=== PATIENT | female | born 1995 | race Caucasian/White ===

== ENCOUNTER 2017-07-03 08:50 | Emergency (ER) | payer BC, OTHER ==
--- NOTE | 2017-07-03 10:38 | RAD ---
INDICATION: Right upper stomach. COMPARISON: None. TECHNIQUE: 5 views of the cervical spine were obtained. FINDINGS: C1-C7 are visualized. There is nonspecific straightening of the normal cervical lordosis on the lateral view. Otherwise the vertebral bodies and facet joints are appropriately aligned. No prevertebral soft tissue swelling or fracture is seen. Disc spaces appear maintained. IMPRESSION: Nonspecific straightening of the normal cervical lordosis in this otherwise normal C-spine radiographic series. If the patient's symptoms persist, follow-up imaging is recommended.
--- NOTE | 2017-07-03 10:44 | UC ---
Shoulder Pain HPI - HPI Summary HPI Summary: 22 yo female awoke this morning at 5 AM with severe right arm pain no paresthesias arm felt very stiff slightly weak about thirty minutes ago the pain eased up and now comes in waves denies neck pain but states she has had chronic intermittent neck pain no THOMAS no trauma - History of Current Complaint Chief Complaint: UCUpperExtremity Stated Complaint: ARM PAIN Time Seen by Provider: 07/03/17 09:50 Hx Obtained From: Patient Hx Last Menstrual Period: 06/17/17 Onset/Duration: Sudden Onset Timing: Constant Severity Initially: Severe Severity Currently: Mild Location Of Pain: Is Diffuse Pain Intensity: 4 Pain Scale Used: 0-10 Numeric Character: Aching, Stiffness Aggravating Factor(s): Nothing Alleviating Factor(s): Nothing Associated Signs And Symptoms: Negative: Swelling, Redness, Bruising, Fever, Weakness, Numbness/Tingling Related History: Dominant Hand Right - Allergies/Home Medications Allergies/Adverse Reactions: Allergies Allergy/AdvReac Type Severity Reaction Status Date / Time Sulfamethoxazole Allergy Intermediate rash, Verified 07/03/17 09:10 w/Trimethoprim conjunctivitis [From Bactrim] Latex Allergy Mild itchy Verified 07/03/17 09:10 PMH/Surg Hx/FS Hx/Imm Hx Previously Healthy: Yes - Surgical History Surgical History: Yes Surgery Procedure, Year, and Place: Appendectomy - Family History Known Family History: Positive: Hypertension - Social History Alcohol Use: Weekly Substance Use Type: None Smoking Status (MU): Never Smoked Tobacco Have You Smoked in the Last Year: No - Immunization History Most Recent Influenza Vaccination: 02/19 Vaccination Up to Date: Yes Review of Systems Constitutional: Negative Skin: Negative Eyes: Negative ENT: Negative Respiratory: Negative Cardiovascular: Negative Gastrointestinal: Negative Genitourinary: Negative Motor: Negative Neurovascular: Negative Musculoskeletal: Myalgia Neurological: Negative Psychological: Negative Is Patient Immunocompromised?: No All Other Systems Reviewed And Are Negative: Yes Physical Exam Triage Information Reviewed: Yes Appearance: Well-Appearing, No Pain Distress, Well-Nourished Vital Signs: Initial Vital Signs Temp 98.2 F 07/03/17 09:02 Pulse 80 07/03/17 09:02 Resp 14 07/03/17 09:02 BP 112/71 07/03/17 09:02 Pulse Ox 99 07/03/17 09:02 Eyes: Positive: Conjunctiva Clear ENT: Positive: Hearing grossly normal, Pharynx normal, TMs normal, Uvula midline. Negative: Nasal congestion, Nasal drainage, Trismus, Muffled voice, Hoarse voice Neck: Positive: Supple, No Lymphadenopathy, Tenderness @ - right trapzius swollen/tender Respiratory: Positive: Lungs clear, Normal breath sounds, No respiratory distress, No accessory muscle use Cardiovascular: Positive: RRR, No Murmur Musculoskeletal: Positive: ROM Intact, No Edema, Other: - n/v/intact Neurological: Positive: Alert Psychological Exam: Normal Skin Exam: Normal Diagnostics - Radiology No standard instances Xray Interpretation: Positive (See Comments) - straightening of CS Radiology Interpretation Completed By: Radiologist Shoulder Course/Dx - Differential Dx/Diagnosis Provider Diagnoses: right arm pain of uncertain cause. ?cervical radiculopathy. right trapezius strain/spasm Discharge - Discharge Plan Condition: Stable Disposition: HOME Prescriptions: Cyclobenzaprine TAB* [Flexeril TAB*] 5 mg PO TID PRN #15 tab PRN Reason: Spasms Ibuprofen TAB* [Motrin TAB*] 600 mg PO Q6H PRN #40 tab PRN Reason: Pain Patient Education Materials: Cervical Radiculopathy (ED) Referrals: Delicia Mcdaniel MD [Medical Doctor] - If Needed (recheck next week if not better) Additional Instructions: recheck for new or worsening symptoms (ED may be most appropriated in case you need further tests), increased pain/swelling of right arm/numbness soft cervical collar when up this may be a radiculopathy due to right trapzius muscle spasm but I am not sure.
[2017-07-03 11:02] VITALS: BP 119/82
== END 2017-07-03 11:09 | disposition home or self-care (01) ==
LOC: UCEAST 08:50
DX: M79.601 Pain in right arm (principal); S46.811A Strain of other muscles, fascia and tendons at shoulder and upper arm level, right arm, initial encounter; M53.82 Other specified dorsopathies, cervical region; Z88.2 Allergy status to sulfonamides; Z91.040 Latex allergy status; X58.XXXA Exposure to other specified factors, initial encounter; Y92.9 Unspecified place or not applicable
CPT/HCPCS: 72050; 99213; G0463

== ENCOUNTER 2017-11-16 10:07 | Emergency (ER) | payer BC ==
[2017-11-16 10:23] VITALS: BP 131/82
--- NOTE | 2017-11-16 16:37 | UC ---
Daniel Rizo Angela, scribed for Jose Hussein MD on 11/16/17 at 1028 . Respiratory Complaint HPI - HPI Summary HPI Summary: This pt is a 22 y/o female presenting to [facility] c/o SOB and wheezing for the past few days. Pt reports she has a hx of asthma. She states she is from [place] and came to visit her mother who has a cat in her house. Pt notes she is allergic to cats and at home she has SOB and wheezing. She reports that when she is outside the house she feels better. This morning pt was wheezing and she used her albuterol. Upon arriving to Urgent Care pt denies any symptoms currently. - History of Current Complaint Chief Complaint: UCRespiratory Stated Complaint: ASTHMA COMPLAINT Time Seen by Provider: 11/16/17 10:26 Hx Obtained From: Patient Hx Last Menstrual Period: implant Onset/Duration: Lasting Days, Resolved Severity Currently: None Pain Intensity: 0 Pain Scale Used: 0-10 Numeric Aggravating Factors: Other - cat in her house Alleviating Factors: Other - albuterol Associated Signs And Symptoms: Positive: Wheezing. Negative: Fever, Chills - Allergies/Home Medications Allergies/Adverse Reactions: Allergies Allergy/AdvReac Type Severity Reaction Status Date / Time latex Allergy Rash Verified 11/16/17 10:24 sulfamethoxazole Allergy Rash Verified 11/16/17 10:24 [From Bactrim] trimethoprim [From Bactrim] Allergy Rash Verified 11/16/17 10:24 PMH/Surg Hx/FS Hx/Imm Hx Other Cardiovascular History: DENIES: HTN Respiratory History: Asthma Other Psychological History: ADHD - Surgical History Surgical History: Yes Surgery Procedure, Year, and Place: Appendectomy - Family History Known Family History: Positive: Hypertension - Social History Alcohol Use: Weekly Substance Use Type: None Smoking Status (MU): Never Smoked Tobacco Have You Smoked in the Last Year: No - Immunization History Most Recent Influenza Vaccination: 02/19 Vaccination Up to Date: Yes Review of Systems Constitutional: Negative Skin: Negative Eyes: Negative ENT: Negative Respiratory: Shortness Of Breath - now resolved, Other - POS: wheezing, now resolved Cardiovascular: Negative Gastrointestinal: Negative Genitourinary: Negative Motor: Negative Neurovascular: Negative Musculoskeletal: Negative Neurological: Negative Psychological: Negative Is Patient Immunocompromised?: No All Other Systems Reviewed And Are Negative: Yes Physical Exam - Summary Physical Exam Summary: VITAL SIGNS: Reviewed. GENERAL: Patient is a well-developed and nourished female who is lying comfortable in the stretcher. Patient is not in any acute respiratory distress. HEAD AND FACE: Normocephalic EYES: PERRLA, EOMI x 2. EARS: Hearing grossly intact. MOUTH: Oropharynx within normal limits. NECK: Supple, trachea is midline, no adenopathy, no JVD, no carotid bruit. CHEST: Symmetric, no tenderness at palpation LUNGS: Clear to auscultation bilaterally. No wheezing or crackles. CVS: Regular rate and rhythm, S1 and S2 present, no murmurs or gallops appreciated. ABDOMEN: Soft, non-tender. Bowel sounds are normal. No abdominal abnormal pulsations. EXTREMITIES: Full ROM in all major joints, no edema, no cyanosis or clubbing. NEURO: Alert and oriented x 3. No acute neurological deficits. Speech is normal and follows commands. SKIN: Dry and warm Triage Information Reviewed: Yes Vital Signs: Initial Vital Signs Temp 97.8 F 11/16/17 10:21 Pulse 85 11/16/17 10:21 Resp 16 11/16/17 10:21 BP 131/82 11/16/17 10:21 Pulse Ox 99 11/16/17 10:21 Vital Signs Reviewed: Yes UC Diagnostic Evaluation - Laboratory O2 Sat by Pulse Oximetry: 99 Respiratory Course/Dx - Course Course Of Treatment: This pt is a 22 y/o female presenting to [facility] c/o SOB and wheezing for the past few days. Pt reports she has a hx of asthma. She states she is from [place] and came to visit her mother who has a cat in her house. Pt notes she is allergic to cats and at home she has SOB and wheezing. She reports that when she is outside the house she feels better. This morning pt was wheezing and she used her albuterol. Upon arriving to Urgent Care pt denies any symptoms currently. Pt has no wheezing on exam and she has no complaints at this time. Therefore she will be discharged home with follow up from PCP. I will give the pt a prescription for prednisone for better control of asthma. Pt was instructed to return to the urgent care or go to ER immediately if any of the symptoms return or worsens. Plan of care was discussed with the patient and pt understands and agrees. All questions were answered to patient satisfaction. There were no further complaints or concerns. Pt is hemodynamically stable, alert and oriented x3. The patient was found to have increased blood pressure in UC. The patient will follow up with PCP for better control of BP. - Differential Dx/Diagnosis Provider Diagnoses: Asthma Discharge - Sign-Out/Discharge Documenting (check all that apply): Discharge/Admit/Transfer - Discharge - Discharge Plan Condition: Stable Disposition: HOME Prescriptions: predniSONE TAB* [Deltasone TAB*] 40 mg PO DAILY #10 tab Patient Education Materials: Asthma (ED) Referrals: Delicia Mcdaniel MD [Primary Care Provider] - Additional Instructions: FOLLOW UP WITH YOUR PRIMARY CARE PROVIDER WITHIN ONE WEEK FOR HIGH BLOOD PRESSURE NOTED TODAY. RETURN TO URGENT CARE OR THE ED FOR ANY WORSENING OR NEW SYMPTOMS. The documentation as recorded by the Daniel corrales Angela accurately reflects the service I personally performed and the decisions made by Keenan jacobs Walter, MD.
== END 2017-11-16 10:36 | disposition home or self-care (01) ==
LOC: UCEAST 10:07
DX: J45.909 Unspecified asthma, uncomplicated (principal); F90.9 Attention-deficit hyperactivity disorder, unspecified type; Z88.2 Allergy status to sulfonamides; Z91.040 Latex allergy status
CPT/HCPCS: 99212; G0463